=== PATIENT | male | born 1955 | race Caucasian/White ===

== ENCOUNTER 2017-05-19 11:00 | Emergency (ER) | payer OTHER, MEDICAID ==
[2017-05-19 11:27] VITALS: BP 144/78
--- NOTE | 2017-05-19 11:40 | UC ---
Complaint Male HPI - HPI Summary HPI Summary: urinary burning and frequency x 3 days no fever, no chills, no flank pain . + lower back pain - History of Current Complaint Chief Complaint: UCGU Stated Complaint: URINARY COMPLAINT Time Seen by Provider: 05/19/17 11:12 Hx Obtained From: Patient Onset/Duration: Gradual Onset, Lasting Days - 3, Still Present Timing: Constant Severity Initially: Moderate Severity Currently: Moderate Location: Suprapubic Character: Burning Aggravating Factor(s): Voiding Alleviating Factor(s): Nothing Associated Signs And Symptoms: Positive: Dysuria. Negative: Diaphoresis, Back Pain, Fever, Hematuria, Constipation, Blood in Stool, Rectal Pain, Appetite, Nausea, Vomiting(# Of Episodes =), Penile Swelling, Penile Discharge - Allergies/Home Medications Allergies/Adverse Reactions: Allergies Allergy/AdvReac Type Severity Reaction Status Date / Time environmental Allergy Fatigue Uncoded 05/19/17 11:30 Home Medications: Home Medications Allergy Med 1 tab PO QPM 05/19/17 [History Confirmed 05/19/17] Triamterene/HCTZ 37.5-25 MG* [Dyazide CAP*] 1 cap PO DAILY 05/19/17 [History Confirmed 05/19/17] PMH/Surg Hx/FS Hx/Imm Hx Cardiovascular History: Hypertension Respiratory History: Asthma Psychological History: Anxiety, Depression - Surgical History Surgical History: Yes Surgery Procedure, Year, and Place: Urethal surgery but can not remember what happened. right knee surgery 03/2016; glabladder and umbilical hernia 03/2017 - Family History Known Family History: Positive: Diabetes, Other - CANCER - Social History Alcohol Use: Rare Substance Use Type: None Smoking Status (MU): Never Smoked Tobacco - Immunization History Most Recent Influenza Vaccination: this season Most Recent Tetanus Shot: over 10 years ago Most Recent Pneumonia Vaccination: denies Review of Systems Constitutional: Negative Skin: Negative Eyes: Negative ENT: Negative Respiratory: Negative Cardiovascular: Negative Gastrointestinal: Negative Genitourinary: Dysuria, Frequency All Other Systems Reviewed And Are Negative: Yes Physical Exam Triage Information Reviewed: Yes Appearance: Well-Appearing, No Pain Distress, Obese Vital Signs: Initial Vital Signs Temp 98.1 F 05/19/17 11:08 Pulse 77 05/19/17 11:08 Resp 22 05/19/17 11:08 BP 144/78 05/19/17 11:08 Vital Signs Reviewed: Yes Eye Exam: Normal Eyes: Positive: Conjunctiva Clear ENT: Positive: Normal ENT inspection, Hearing grossly normal, Pharynx normal Neck exam: Normal Neck: Positive: Supple, Nontender, No Lymphadenopathy Respiratory: Positive: Chest non-tender, Lungs clear, Normal breath sounds Cardiovascular: Positive: RRR, No Murmur, Pulses Normal Abdominal Exam: Normal Abdomen Description: Positive: Nontender, No Organomegaly, Soft. Negative: CVA Tenderness (R), CVA Tenderness (L), Distended, Guarding Bowel Sounds: Positive: Present Neurological Exam: Normal Skin Exam: Normal Complaint Male Course/Dx - Differential Dx/Diagnosis Provider Diagnoses: uti Discharge - Discharge Plan Condition: Stable Disposition: HOME Prescriptions: Sulfamethox/Trimethoprim DS* [Bactrim DS 800/160 TAB*] 1 tab PO BID #14 tab Patient Education Materials: Urinary Tract Infection in Men (ED) Referrals: Domingo Amezcua MD [Primary Care Provider] - 5 Days
--- NOTE | 2017-05-22 08:12 | ED ---
Progress - Progress Note Progress Note: CALL PATIENT. CX(+). CHANGED ABX TO CIPRO. Course/Dx - Diagnoses Provider Diagnoses: Dysuria, Urinary urgency
== END 2017-05-19 12:03 | disposition home or self-care (01) ==
LOC: UCCORT 11:00
DX: N39.0 Urinary tract infection, site not specified (principal); I10 Essential (primary) hypertension; J45.909 Unspecified asthma, uncomplicated; F41.8 Other specified anxiety disorders; Z11.4 Encounter for screening for human immunodeficiency virus [HIV]
CPT/HCPCS: 36415; 81003; 86703; 87077; 87086; 87186; 99212; G0463

== ENCOUNTER 2017-09-24 08:17 | Emergency (ER) | payer OTHER, MEDICAID ==
[2017-09-24 08:35] VITALS: BP 115/74
--- NOTE | 2017-09-24 08:49 | UC ---
Skin Complaint HPI - HPI Summary HPI Summary: recovering from shingles on right shoulder--has one area of a 1 cm pustula patient is concerned about- - History of Current Complaint Chief Complaint: UCSkin Time Seen by Provider: 09/24/17 08:26 Stated Complaint: SKIN CONCERN Hx Obtained From: Patient Onset/Duration: Gradual Onset, Lasting Days, Still Present Timing: Constant Onset Severity: Mild Current Severity: Mild Location: Discrete Character: Redness, Raised Aggravating Factor(s): Nothing Alleviating Factor(s): Nothing Associated Signs & Symptoms: Positive: Negative, Tenderness - Allergy/Home Medications Allergies/Adverse Reactions: Allergies Allergy/AdvReac Type Severity Reaction Status Date / Time environmental Allergy Fatigue Uncoded 09/24/17 08:28 Review of Systems Constitutional: Negative Skin: Rash Eyes: Negative ENT: Negative Respiratory: Negative Cardiovascular: Negative Gastrointestinal: Negative Genitourinary: Negative Motor: Negative Neurovascular: Negative Musculoskeletal: Negative Neurological: Negative Psychological: Negative Is Patient Immunocompromised?: No All Other Systems Reviewed And Are Negative: Yes PMH/Surg Hx/FS Hx/Imm Hx Endocrine History: Dyslipidemia Cardiovascular History: Hypertension Respiratory History: Asthma GI/ History: Other Other GI/ History: BPH - Surgical History Surgical History: Yes Surgery Procedure, Year, and Place: Urethal surgery but can not remember what happened. right knee surgery 03/2016; glabladder and umbilical hernia 03/2017 - Family History Known Family History: Positive: Diabetes, Other - CANCER - Social History Occupation: Unemployed Lives: With Family Alcohol Use: Rare Substance Use Type: None Smoking Status (MU): Never Smoked Tobacco - Immunization History Most Recent Influenza Vaccination: June 2017 Most Recent Tetanus Shot: over 10 years ago Most Recent Pneumonia Vaccination: denies Physical Exam Triage Information Reviewed: Yes Appearance: No Pain Distress, Ill-Appearing - appears chronicly older than stated age, Obese Vital Signs: Initial Vital Signs Temp 97.9 F 09/24/17 08:27 Pulse 80 09/24/17 08:27 Resp 20 09/24/17 08:27 BP 115/74 09/24/17 08:27 Pulse Ox 97 09/24/17 08:27 Vital Signs Reviewed: Yes Eye Exam: Normal Eyes: Positive: Conjunctiva Clear ENT Exam: Normal ENT: Positive: Normal ENT inspection, Hearing grossly normal. Negative: Trismus , Muffled voice, Hoarse voice, Dental tenderness Dental Exam: Normal Neck exam: Normal Neck: Positive: Supple, Nontender, Other: - 1 cm dismeter pustula Respiratory Exam: Normal Respiratory: Positive: No respiratory distress, No accessory muscle use Cardiovascular Exam: Normal Cardiovascular: Positive: RRR, Brisk Capillary Refill Musculoskeletal Exam: Normal Musculoskeletal: Positive: Strength Intact, ROM Intact, No Edema Neurological Exam: Normal Neurological: Positive: Alert, Muscle Tone Normal Psychological Exam: Normal Skin: Positive: Other - pustula on right side of neck/shoulder as described Re-Evaluation - Re-Evaluation First Eval Change: Unchanged - pustual unroofed scant purulent drainage - Course/Dx - Course Course Of Treatment: finish current antibiodic rx, heat and warm soaks recheck as needed - Diagnoses Provider Diagnoses: pustula right shoulder neck 1 cm diameter Discharge - Discharge Plan Condition: Stable Disposition: HOME Patient Education Materials: Folliculitis (ED), Warm Compress or Soak (ED) Referrals: Domingo Amezcua MD [Primary Care Provider] - If Needed
== END 2017-09-24 08:55 | disposition home or self-care (01) ==
LOC: UCCORT 08:17
DX: L08.9 Local infection of the skin and subcutaneous tissue, unspecified (principal); Z91.048 Other nonmedicinal substance allergy status
CPT/HCPCS: 99212; G0463

== ENCOUNTER 2017-12-08 10:48 | Emergency (ER) | payer OTHER ==
[2017-12-08 12:43] LABS: ABS Basophils 0 10^3/ul (0-0.2); ABS Eosinophils 0.1 10^3/ul (0-0.6); ABS Lymphocytes 1.6 10^3/ul (1.0-4.8); ABS Monocytes 0.5 10^3/ul (0-0.8); ABS Neutrophils 3.9 10^3/ul (1.5-7.7); ABS Nucleated RBC 0 10^3/ul; Eosinophil % 1.2 % (0-6); Hematocrit 39 % (42-52); Hemoglobin 13.1 g/dl (14.0-18.0); Lymphocyte % 26.5 % (25-47); Mean Corpuscular HGB Conc 34 g/dl (31-36); Mean Corpuscular Hemoglobin 30 pg (27-31); Mean Corpuscular Volume 89 fL (80-94); Mean Platelet Volume 7.1 um3 (7.4-10.4); Nucleated Red Blood Cells % 0.1; Platelet Count 228 10^3/ul (150-450); Red Blood Count 4.32 10^6/ul (4.0-5.4); Red Cell Distribution Width 14 % (10.5-15); White Blood Count 6.2 10^3/ul (3.5-10.8)
[2017-12-08 13:00] LABS: EGFR Non-African American 71.1 (>60)
[2017-12-08 13:55] LABS: Urine Appearance Cloudy; Urine Blood Negative (Negative); Urine Color Yellow; Urine Ketones Negative (Negative); Urine Protein Negative (Negative); Urine Specific Gravity 1.017 (1.010-1.030); Urine Urobilinogen Negative (Negative)
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
[2017-12-08 19:11] VITALS: BP 138/71
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
--- NOTE | 2017-12-11 09:32 | PN ---
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
== END 2017-12-08 19:03 | disposition home or self-care (01) ==
LOC: ED 10:48
DX: I10 Essential (primary) hypertension (principal); Z04.1 Encounter for examination and observation following transport accident; F32.9 Major depressive disorder, single episode, unspecified
CPT/HCPCS: 36415; 80053; 80307; 80320; 80329; 81003; 81015; 84443; 85025; 87077; 87086; 87186; 99284; G0480

== ENCOUNTER 2018-04-12 11:20 | Emergency (ER) | payer MEDICARE, MEDICAID ==
[2018-04-12 11:46] VITALS: BP 117/58
[2018-04-12] MEDS ORDERED: cefTRIAXone VIAL(*) 1,000 MG VIAL IVPB ONE (12:00)
[2018-04-12] MEDS ORDERED: Lidocaine 1% MPF* 2 ML VIAL INJ ONE (12:03)
[2018-04-12] MEDS ORDERED: cefTRIAXone VIAL(*) 1,000 MG VIAL IM ONE (12:11)
--- NOTE | 2018-04-12 12:11 | UC ---
Complaint Male HPI - HPI Summary HPI Summary: He says he has a few years of pyelonephritis's. He is followed by Urology, Dr. Carvajal. He denies hx of kidney stones. He says for two days he has had dysuria and now mirian flank pain. No known fever or chills. no vomiting. No hematuria. - History of Current Complaint Chief Complaint: UCGU Stated Complaint: LOW BACK PAIN Time Seen by Provider: 04/12/18 11:32 Hx Obtained From: Patient Onset/Duration: Gradual Onset, Lasting Days Timing: Constant, Lasting Days Severity Initially: Mild Severity Currently: Moderate Pain Intensity: 8 Location: Flank Character: Burning Aggravating Factor(s): Voiding Alleviating Factor(s): Nothing Associated Signs And Symptoms: Positive: Back Pain, Dysuria. Negative: Fever, Hematuria, Constipation, Rectal Pain, Appetite, Nausea - Allergies/Home Medications Allergies/Adverse Reactions: Allergies Allergy/AdvReac Type Severity Reaction Status Date / Time environmental Allergy Fatigue Uncoded 04/12/18 11:34 PMH/Surg Hx/FS Hx/Imm Hx Previously Healthy: Yes - Surgical History Surgical History: Yes Surgery Procedure, Year, and Place: Urethal surgery but can not remember what happened. right knee surgery 03/2016; gallbladder and umbilical hernia 03/2017 - Family History Known Family History: Positive: Diabetes, Other - CANCER - Social History Alcohol Use: Rare Substance Use Type: None Smoking Status (MU): Never Smoked Tobacco Household Exposure Type: Cigarettes - Immunization History Most Recent Influenza Vaccination: June 2017 Most Recent Tetanus Shot: over 10 years ago Most Recent Pneumonia Vaccination: denies Review of Systems Genitourinary: Dysuria All Other Systems Reviewed And Are Negative: Yes Physical Exam Triage Information Reviewed: Yes Appearance: Well-Appearing, Obese Vital Signs: Initial Vital Signs Temp 98.5 F 04/12/18 11:38 Pulse 58 04/12/18 11:38 Resp 14 04/12/18 11:38 BP 117/58 04/12/18 11:38 Pulse Ox 96 04/12/18 11:38 Vital Signs Reviewed: Yes Eyes: Positive: Conjunctiva Clear ENT: Positive: Normal ENT inspection Neck: Negative: Nuchal Rigidity Respiratory: Positive: Lungs clear, Normal breath sounds, No respiratory distress, No accessory muscle use. Negative: Respiratory distress, Decreased breath sounds, Accessory muscle use, Crackles, Rhonchi, Stridor Cardiovascular: Positive: No Murmur, Pulses Normal, Brisk Capillary Refill. Negative: Tachycardia Abdomen Description: Positive: Nontender, Soft, CVA Tenderness (R), CVA Tenderness (L). Negative: Distended, Guarding Neurological: Positive: Alert, Muscle Tone Normal. Negative: Fatigued Psychological: Positive: Age Appropriate Behavior Skin: Negative: rashes Complaint Male Course/Dx - Course Course Of Treatment: He agrees to go to ED for any worsening symptoms or fever. - Differential Dx/Diagnosis Provider Diagnoses: flank pain mirian acute. Discharge - Sign-Out/Discharge Documenting (check all that apply): Patient Departure - Discharge Plan Condition: Good Disposition: HOME Prescriptions: Cephalexin CAP* [Keflex CAP*] 500 mg PO TID #30 cap Patient Education Materials: Urinary Tract Infection in Men (ED) Referrals: Domingo Amezcua MD [Primary Care Provider] - Carloz SUBRAMANIAN,Magen English [Medical Doctor] - - Billing Disposition and Condition Condition: GOOD Disposition: Home
== END 2018-04-12 12:36 | disposition home or self-care (01) ==
LOC: UCCORT 11:20
DX: R10.9 Unspecified abdominal pain (principal); Z91.09 Other allergy status, other than to drugs and biological substances
CPT/HCPCS: 81003; 87086; 96372; 99212; G0463; J0696